=== PATIENT | female | born 1990 | race African-American/Black ===

== ENCOUNTER 2017-10-21 16:11 | Emergency (ER) | payer OTHER ==
[2017-10-21 16:55] LABS: Absolute Lymphocytes (CBC) 1.8 K/uL (0.7-4.9); Absolute Monocytes 0.5 K/uL (0.1-1.3); Absolute Neutrophil 6.9 K/uL (1.8-8.0); Basophils % 0.3 % (0-1.3); Eosinophils % 1.3 % (0-4.4); Hematocrit 40.2 % (36.0-45.0); Lymphocytes % 19.2 % (15.3-44.8); MCH 31.5 pg (27.0-35.0); MCV 91.2 fL (80-100); MPV 8.9 fL (7.6-11.3); Monocytes % 5.3 % (3.3-12.3); RBC Red Blood Cell Count 4.41 M/uL (3.86-4.86)
[2017-10-21] MEDS ORDERED: NA CHLORIDE 0.9% 1,000 ML ONE (16:55)
[2017-10-21 17:27] LABS: Urine Blood TRACE (NEG); Urine Glucose NEGATIVE (NEG); Urine Protein NEGATIVE (NEG); Urine pH 5.5 (5.0-7.0)
[2017-10-21 17:37] LABS: Urine Amorphous Sediment 2+ /HPF (NONE SEEN); Urine Bacteria 20-50 /HPF (<20); Urine Culture Reflex Order REFLEXED; Urine RBC <5 /HPF (NONE SEEN)
[2017-10-21 17:40] LABS: ALT/SGPT 25 U/L (12-78); AST/SGOT 18 U/L (15-37); Albumin 3.3 g/dL (3.4-5.0); Alkaline Phosphatase 74 U/L (45-117); BUN Blood Urea Nitrogen 7 mg/dL (7-18); Bicarbonate 24 mmol/L (21-32); Bilirubin Direct < 0.1 mg/dL (0-0.2); Bilirubin Total 0.4 mg/dL (0.2-1.0); Glucose Level 108 mg/dL (74-106); Lipase 162 U/L (73-393); Potassium 3.5 mmol/L (3.5-5.1); Protein, Total 7.7 g/dL (6.4-8.2); Sodium Level 140 mmol/L (136-145)
--- NOTE | 2017-10-21 19:07 | RAD REPORT ---
EXAM DESCRIPTION: CT - Abdomen Pelvis W Contrast - 10/21/2017 6:27 pm CLINICAL HISTORY: Abdominal pain, periumbilical pain, history of umbilical hernia COMPARISON: None. TECHNIQUE: Biphasic, helical CT imaging of the abdomen and pelvis was performed following 100 ml non -ionic IV contrast. Oral contrast was given. All CT scans are performed using dose optimization technique as appropriate and may include automated exposure control or mA/KV adjustment according to patient size. FINDINGS: No suspicious findings in the lung bases. The liver, spleen, and pancreas show no suspicious findings. Gallbladder and biliary tree are also wi thout suspicious finding. Symmetric renal function is seen with no hydronephrosis or suspicious renal mass. No pyelonephritis o r acute renal parenchymal process. Contracted urinary bladder shows no suspicious finding. Uterus and ovaries show no suspicious findings. No dilated bowel loops or bowel wall thickening. Colon assessment is limited. Colon is mostly decompr essed and oral contrast has not reached the colon. No evidence for appendicitis. No free air, free fl uid or inflammatory stranding. No mass or bulky lymphadenopathy. The patient has a 3 centimeter umbi lical hernia. There is a narrow neck. No significant stranding or edema in the herniated fat and ther e is no bowel in proximity to the hernia. Uterus and ovaries show no suspicious findings. No adrenal abnormality. No suspicious bony findings. IMPRESSION: Contrast enhanced CT abdomen and pelvis imaging shows no emergent finding. Patient has a few mesenteric lymph nodes. Nonspecific adenitis or enteritis would be possible. The narrow neck 3 centimeter umbilical hernia shows no measurable congestion or edema of the herniate d fat. No bowel involvement.
[2017-10-21] MEDS ORDERED: DICYCLOMINE HCL 10 MG CAP ONE (19:31)
[2017-10-21] MEDS ORDERED: KETOROLAC 30 MG/ML INJ ONE (19:31)
--- NOTE | 2017-10-21 20:15 | ER ---
Nurse's Notes [facility] Name: Senia Giron Age: 27 yrs Sex: Female : 1990 Arrival Date: 10/21/2017 Time: 16:17 Bed External Waiting [facility] MD: Diagnosis: Diarrhea, unspecified-Gastroenteritis;Unspecified abdominal pain Presentation: 10/21 16:22 Presenting complaint: Patient states: Pain to umbilicus that is intermittent and worse aj after eating. Patient reports umbilical hernia, no redness of inflammation. Transition of care: patient was not received from another setting of care. Onset of symptoms was October 15, 2017. Risk Assessment: Do you want to hurt yourself or someone else? Patient reports no desire to harm self or others. Initial Sepsis Screen: Does the patient meet any 2 criteria? No. Patient's initial sepsis screen is negative. Does the patient have a suspected source of infection? No. Patient's initial sepsis screen is negative. Care prior to arrival: None. 16:22 Method Of Arrival: Ambulatory aj 16:22 Acuity: GELY 3 aj Triage Assessment: 16:23 General: Appears in no apparent distress. comfortable, Behavior is calm, cooperative, aj appropriate for age. Pain: Complains of pain in umbilical area. Neuro: Level of Consciousness is awake, alert, obeys commands, Oriented to person, place, time, situation, Appropriate for age. Respiratory: Airway is patent Respiratory effort is even, unlabored, Respiratory pattern is regular, symmetrical. GI: Abdomen is flat, Reports lower abdominal pain. Derm: Skin is intact, is healthy with good turgor, Skin is pink, warm \T\ dry. normal. 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 - Social history:: Smoking status: Patient/guardian denies using tobacco. - Ebola Screening: : Patient negative for fever greater than or equal to 101.5 degrees Fahrenheit, and additional compatible Ebola Virus Disease symptoms Patient denies exposure to infectious person Patient denies travel to an Ebola-affected area in the 21 days before illness onset No symptoms or risks identified at this time. Screenin:46 Abuse screen: Denies threats or abuse. Denies injuries from another. Nutritional ch screening: No deficits noted. Tuberculosis screening: No symptoms or risk factors identified. Fall Risk None identified. Assessment: 16:46 General: Appears in no apparent distress. comfortable, Behavior is calm, cooperative, ch appropriate for age. Pain: Complains of pain in abdomen and umbilical area Pain currently is 6 out of 10 on a pain scale. at worst was 8 out of 10 on a pain scale. Neuro: No deficits noted. Cardiovascular: No deficits noted. Respiratory: Airway is patent Respiratory effort is even, unlabored, Breath sounds are clear bilaterally. GI: Bowel sounds present X 4 quads. Abd is soft and non tender X 4 quads. Reports Pain is 6 out of 10 on a pain scale. : No signs and/or symptoms were reported regarding the genitourinary system. Derm: Skin is pink, warm \T\ dry. 18:01 Reassessment: Patient appears in no apparent distress at this time. Patient and/or family updated on plan of care and expected duration. Pain level reassessed. Patient is alert, oriented x 3, equal unlabored respirations, skin warm/dry/pink. Patient states feeling better. Patient states symptoms have improved. 19:13 Reassessment: Patient appears in no apparent distress at this time. No changes from [facility] previously documented assessment. Patient and/or family updated on plan of care and expected duration. Pain level reassessed. Patient is alert, oriented x 3, equal unlabored respirations, skin warm/dry/pink. pt reporting pain, provider notified. 20:18 Reassessment: Patient appears in no apparent distress at this time. Patient and/or [facility] family updated on plan of care and expected duration. Pain level reassessed. Patient is alert, oriented x 3, equal unlabored respirations, skin warm/dry/pink. Patient states feeling better. 20:30 Reassessment: Patient appears in no apparent distress at this time. Patient and/or [facility] family updated on plan of care and expected duration. Pain level reassessed. Patient is alert, oriented x 3, equal unlabored respirations, skin warm/dry/pink. pt reported understanding of discharge instructions, even and steady gait upon discharge. Vital Signs: 16:23 BP 140 / 86; Pulse 101; Resp 20; Temp 97.5; Pulse Ox 97% on R/A; Weight 99.79 kg; aj Height 5 ft. 8 in. (172.72 cm); 18:01 BP 116 / 62; Pulse 82; Resp 14; Pulse Ox 99% on R/A; Pain 2/10; ch 19:15 BP 132 / 81; Pulse 88; Resp 17 S; Pulse Ox 98% on R/A; Pain 8/10; jd3 20:16 BP 127 / 88; Pulse 80; Resp 16 S; Pulse Ox 100% on R/A; jd3 16:23 Body Mass Index 33.45 (99.79 kg, 172.72 cm) aj ED Course: 16:17 Patient arrived in ED. rg4 16:23 Triage completed. aj 16:23 Arm band placed on left wrist. Patient placed in an exam room. aj 16:31 Juliocesar Zhang NP is PHCP. pm1 16:31 Glen Coker MD is Attending Physician. pm1 16:46 Emily Allen, RN is Primary Nurse. ch 16:46 No apparent distress. Resting quietly. ch 16:46 Patient has correct armband on for positive identification. Placed in gown. Bed in low ch position. Call light in reach. Side rails up X 1. Adult w/ patient. Pulse ox on. NIBP on. Warm blanket given. 16:46 No provider procedures requiring assistance completed. ch 16:50 Inserted saline lock: 20 gauge in left antecubital area, using aseptic technique. ch started by Mala George 18:[address] pa 18:27 CT Abd/Pelvis - W/Contrast In Process Unspecified. EDMS 19:13 Primary Nurse role handed off by Emily Allen, RN jd3 19:13 Bert Melgar, RN is Primary Nurse. jd3 19:21 Report given to Federico. ch 20:30 IV discontinued, intact, bleeding controlled, No redness/swelling at site. Pressure jd3 dressing applied. Administered Medications: 16:53 Drug: NS 0.9% 1000 ml Route: IV; Rate: 1000 ml; Site: left antecubital; ss 19:33 Follow up: Response: No adverse reaction; Rate change bolus; IV Status: Completed jd3 infusion; IV Intake: 1000ml 19:33 Drug: Bentyl 20 mg Route: PO; jd3 20:31 Follow up: Response: No adverse reaction jd3 19:33 Drug: TORadol 30 mg Route: IVP; Site: left antecubital; jd3 20:31 Follow up: Response: No adverse reaction jd3 Intake: 19:33 IV: 1000ml; Total: 1000ml. jd3 Outcome: 20:15 Discharge ordered by MD. pm1 20:29 Discharged to home ambulatory, with family. jd3 20:29 Condition: stable 20:29 Discharge instructions given to patient, Instructed on discharge instructions, follow up and referral plans. medication usage, Demonstrated understanding of instructions, follow-up care, medications, Prescriptions given X 1. 20:31 Patient left the ED. jd3 Signatures: Dispatcher [employer] EDMS Emily Allen, RN Alivia Quintero ch, RN RN aj Smirch, Shelby, RN RN ss Marinas, Patrick, JULIANO PROPOSAL ENGINEER pm1 Susana Angulo 4 Saul Jaquez Jonathon, RN RN jd3
--- NOTE | 2017-10-21 20:15 | EDPHYS ---
Physician Documentation [facility] Name: Senia Giron Age: 27 yrs Sex: Female : 1990 Arrival Date: 10/21/2017 Time: 16:17 Bed External Waiting Private MD: ED Physician Glen Coker HPI: 10/21 17:16 This 27 yrs old Black Female presents to ER via Ambulatory with complaints of Abdominal pm1 Pain. 17:16 The patient presents with abdominal pain in the lower abdomen, in the periumbilical pm1 area. Onset: The symptoms/episode began/occurred 4 day(s) ago. The symptoms do not radiate. Associated signs and symptoms: Pertinent positives: diarrhea, Pertinent negatives: nausea and vomiting, chest pain, constipation, dysuria, fever, shortness of breath. The symptoms are described as crampy. Modifying factors: The symptoms are alleviated by nothing, the symptoms are aggravated by food. Severity of pain: in the emergency department the pain has improved. The patient has not experienced similar symptoms in the past. The patient has not recently seen a physician. 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 - Social history:: Smoking status: Patient/guardian denies using tobacco. - Ebola Screening: : Patient negative for fever greater than or equal to 101.5 degrees Fahrenheit, and additional compatible Ebola Virus Disease symptoms Patient denies exposure to infectious person Patient denies travel to an Ebola-affected area in the 21 days before illness onset No symptoms or risks identified at this time. ROS: 17:16 Constitutional: Negative for fever, chills, and weight loss, Eyes: Negative for injury, pm1 pain, redness, and discharge, ENT: Negative for injury, pain, and discharge, Neck: Negative for injury, pain, and swelling, Cardiovascular: Negative for chest pain, palpitations, and edema, Respiratory: Negative for shortness of breath, cough, wheezing, and pleuritic chest pain, Back: Negative for injury and pain, MS/Extremity: Negative for injury and deformity, Skin: Negative for injury, rash, and discoloration. 17:16 : Negative for injury, bleeding, discharge, and swelling, Neuro: Negative for headache, weakness, numbness, tingling, and seizure. 17:16 Abdomen/GI: Positive for abdominal pain, diarrhea, of the umbilical area, right lower quadrant and left lower quadrant, Negative for nausea and vomiting. Exam: 17:16 Constitutional: This is a well developed, well nourished patient who is awake, alert, pm1 and in no acute distress. Head/Face: Normocephalic, atraumatic. Chest/axilla: Normal chest wall appearance and motion. Nontender with no deformity. No lesions are appreciated. Cardiovascular: Regular rate and rhythm with a normal S1 and S2. No gallops, murmurs, or rubs. Normal PMI, no JVD. No pulse deficits. Respiratory: Lungs have equal breath sounds bilaterally, clear to auscultation and percussion. No rales, rhonchi or wheezes noted. No increased work of breathing, no retractions or nasal flaring. Abdomen/GI: Soft, non-tender, with normal bowel sounds. No distension or tympany. No guarding or rebound. No evidence of tenderness throughout. Back: No spinal tenderness. No costovertebral tenderness. Full range of motion. Skin: Warm, dry with normal turgor. Normal color with no rashes, no lesions, and no evidence of cellulitis. MS/ Extremity: Pulses equal, no cyanosis. Neurovascular intact. Full, normal range of motion. 17:16 Neuro: Orientation: is normal, Motor: moves all fours. Vital Signs: 16:23 BP 140 / 86; Pulse 101; Resp 20; Temp 97.5; Pulse Ox 97% on R/A; Weight 99.79 kg; aj Height 5 ft. 8 in. (172.72 cm); 18:01 BP 116 / 62; Pulse 82; Resp 14; Pulse Ox 99% on R/A; Pain 2/10; ch 19:15 BP 132 / 81; Pulse 88; Resp 17 S; Pulse Ox 98% on R/A; Pain 8/10; jd3 20:16 BP 127 / 88; Pulse 80; Resp 16 S; Pulse Ox 100% on R/A; jd3 16:23 Body Mass Index 33.45 (99.79 kg, 172.72 cm) aj MDM: 16:32 Patient medically screened. pm1 17:19 Data reviewed: vital signs. Data interpreted: Pulse oximetry: on room air is 97 %. pm1 Interpretation: normal. 20:13 Counseling: I had a detailed discussion with the patient and/or guardian regarding: the pm1 historical points, exam findings, and any diagnostic results supporting the discharge/admit diagnosis, lab results, radiology results, the need for outpatient follow up, to return to the emergency department if symptoms worsen or persist or if there are any questions or concerns that arise at home. 10/21 16:39 Order name: Basic Metabolic Panel; Complete Time: 17:40 pm1 10/21 16:39 Order name: CBC with Diff; Complete Time: 17:16 pm1 10/21 16:39 Order name: Hepatic Function; Complete Time: 17:40 pm1 10/21 16:39 Order name: Lipase; Complete Time: 17:40 pm1 10/21 16:39 Order name: Urine Microscopic Only; Complete Time: 17:40 pm1 10/21 17:02 Order name: Urine Dipstick--Ancillary (enter results); Complete Time: 17:40 ag 10/21 16:39 Order name: Urine Test (obtain specimen); Complete Time: 16:53 pm1 10/21 16:39 Order name: IV Saline Lock; Complete Time: 16:53 pm1 10/21 16:39 Order name: CT Abd/Pelvis - W/Contrast; Complete Time: 19:11 pm1 10/21 17:02 Order name: Urine --Ancillary (enter results); Complete Time: 17:40 ag 10/21 17:38 Order name: Urine Culture EDWV 10/21 16:39 Order name: Labs collected and sent; Complete Time: 16:53 pm1 10/21 16:39 Order name: Urine Dipstick-Ancillary (obtain specimen); Complete Time: 16:53 pm1 Administered Medications: 16:53 Drug: NS 0.9% 1000 ml Route: IV; Rate: 1000 ml; Site: left antecubital; ss 19:33 Follow up: Response: No adverse reaction; Rate change bolus; IV Status: Completed jd3 infusion; IV Intake: 1000ml 19:33 Drug: Bentyl 20 mg Route: PO; jd3 20:31 Follow up: Response: No adverse reaction jd3 19:33 Drug: TORadol 30 mg Route: IVP; Site: left antecubital; jd3 20:31 Follow up: Response: No adverse reaction jd3 Disposition: 10/21/17 20:15 Discharged to Home. Impression: Diarrhea, unspecified - Gastroenteritis, Unspecified abdominal pain. - Condition is Stable. - Discharge Instructions: Abdominal Pain, Adult, Food Choices to Help Relieve Diarrhea, Adult, Diarrhea, Viral Gastroenteritis. - Prescriptions for Bentyl 20 mg Oral Tablet - take 1 tablet by ORAL route every 6 hours As needed; 20 tablet. - Medication Reconciliation Form, Thank You Letter, Antibiotic Education form. - Follow up: Emergency Department; When: As needed; Reason: Worsening of condition. Follow up: Private Physician; When: 2 - 3 days; Reason: Recheck today's complaints, Continuance of care, Re-evaluation by your physician. - Problem is new. - Symptoms have improved. Addendum: 10/25/2017 07:12 Co-signature as Attending Physician, Glen Coker MD. r n Signatures: Dispatcher [employer] Alivia Crawley, RN Glen Rogers MD MD rn Smirch, Shelby, RN RN ss Marinas, Patrick, JULIANO WAFER MACHINE OPERATOR pm1 Bert Melgar RN RN jd3 Corrections: (The following items were deleted from the chart) 10/21 20:31 20:15 10/21/2017 20:15 Discharged to Home. Impression: Diarrhea, unspecified - jd3 Gastroenteritis; Unspecified abdominal pain. Condition is Stable. Forms are Medication Reconciliation Form, Thank You Letter, Antibiotic Education, Prescription Opioid Use. Follow up: Emergency Department; When: As needed; Reason: Worsening of condition. Follow up: Private Physician; When: 2 - 3 days; Reason: Recheck today's complaints, Continuance of care, Re-evaluation by your physician. Problem is new. Symptoms have improved. pm1
[2017-10-21 20:35] VITALS: TEMP 97.5
[2017-10-21 20:39] VITALS: BP 127/88; O2SAT 100
== END 2017-10-21 20:31 | disposition home or self-care (01) ==
LOC: ER 16:11
DX: K52.9 Noninfective gastroenteritis and colitis, unspecified (principal)
CPT/HCPCS: 36415; 74177; 80048; 80076; 81003; 81015; 81025; 83690; 85025; 87086; 87088; 96361; 96374; 99284; J7030; Q9967